=== PATIENT | male | born 1995 | race African-American/Black ===

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

== ENCOUNTER 2018-04-18 03:29 | Emergency (ER) | payer OTHER ==
[~2018-04-18] VITALS: Ht 177.8 cm; Wt 72.6 kg
[2018-04-18 03:29] VITALS: BP 139/72
[2018-04-18] MEDS ORDERED: TETRACAINE HCL/PF 0.5% UD 2 ML BOTTLE ONE (03:49)
[2018-04-18] MEDS ORDERED: FLUORESCEIN SODIUM OPHTH 1 EA STRIP ONE (03:51)
[2018-04-18] MEDS ORDERED: FLUORESCEIN SODIUM OPHTH 1 EA STRIP OP ONE (04:00)
[2018-04-18] MEDS ORDERED: TETRACAINE HCL/PF 0.5% UD 2 ML BOTTLE LEFTEYE ONE (04:00)
[2018-04-18] MEDS ORDERED: predniSONE 20 MG TABLET ONE (04:27)
[2018-04-18] MEDS ORDERED: diphenhydrAMINE HCL 25 MG CAPSULE ONE (04:27)
[2018-04-18] MEDS ORDERED: predniSONE 20 MG TABLET PO ONE (04:30)
[2018-04-18] MEDS ORDERED: diphenhydrAMINE HCL ELIX 25 MG/10 ML UDC PO ONE (04:30)
== END 2018-04-18 04:31 | disposition home or self-care (01) ==
LOC: ER 03:33
DX: H10.12 Acute atopic conjunctivitis, left eye (principal)
CPT/HCPCS: Q0163